=== PATIENT | female | born 1970 | race African-American/Black ===

== ENCOUNTER 2022-09-01 08:21 | Day surgery (SDC) | payer BC ==
[2022-08-30 10:53] VITALS: BMI 36.9
[2022-09-01 08:34] VITALS: RESP 18
[2022-09-01 09:36] VITALS: TEMP 98
[2022-09-01 09:45] VITALS: BP 121/77; PULSE 72
== END 2022-09-01 09:53 | disposition home or self-care (01) ==
LOC: FASU-ENDO 08:21
PROVIDERS: ATTEND Internal Medicine Gastroenterology
PROC: 0DJD8ZZ Inspection of Lower Intestinal Tract, Via Natural or Artificial Opening Endoscopic (ICD-10-PCS; principal; 2022-09-01 09:07)
DX: Z12.11 Encounter for screening for malignant neoplasm of colon (principal)
CPT/HCPCS: 82962